=== PATIENT | male | born 1990 | race African-American/Black ===

== ENCOUNTER 2017-01-29 19:26 | Emergency (ER) | payer SELFPAY ==
--- NOTE | ~2017-01-29 | ER ---
PATIENT'S NAME: STEVEN MEJIA [facility] AGE: 26 Y [address] ROOM: [place] [address] LOCATION: ED ADMIT DATE: 01/29/2017 ER/Outpatient Report DISCHARGE DATE: 01/29/2017 FAMILY PHYSICIAN: PHYSICIAN, NO ATTENDING PHYSICIAN: Heath Kumar Time of Arrival: 1926 hours. Time of Evaluation: 1945 hours. CHIEF COMPLAINT: Cough and congestion. HISTORY OF PRESENT ILLNESS: This is a 26-year-old male, who presents to the ER, who states he has not been feeling well for the past couple of days. He states he has had a dry cough. He states he feels short of breath and that his asthma is acting up. He states he ran out of his inhaler and so he has not been using anything for that. He states he feels like he has been running a fever at home. He has had some myalgias as well. He states that he has not been around anybody else who has been sick. He states he has had a lot of nasal congestion and a little bit of a sore throat as well. ALLERGIES: AZITHROMYCIN. MEDICATIONS: Please see medication list nurse's notes. PAST MEDICAL HISTORY: Asthma. PAST SURGERIES: Right hand surgery. SOCIAL HISTORY: Smokes 1 pack a day for the last 3 or 4 years. He does smoke marijuana. REVIEW OF SYSTEMS: A 10-point review of systems was completed and was negative with the exception of those discussed in the HPI. PHYSICAL EXAMINATION: VITAL SIGNS: Height 6 feet and 6 inches stated, weight 137.4 kg taken, blood pressure is 141/65, pulse 92, respirations 18, temperature 99.2 degrees tympanically, and saturations 99% on room air. [place] Coma Score is 15. PATIENT'S NAME: STEVEN MEJIA [facility] AGE: 26 Y [address] ROOM: [place] [address] LOCATION: ED ADMIT DATE: 01/29/2017 ER/Outpatient Report DISCHARGE DATE: 01/29/2017 FAMILY PHYSICIAN: PHYSICIAN, NO ATTENDING PHYSICIAN: Heath Kumar GENERAL: Alert, 26-year-old, in no acute distress. HEENT: Head: Normocephalic. Eyes: Pupils are equal and reactive to light. Ears: TMs display good light reflexes bilaterally. Nose: Turbinates pink with purulent drainage. Throat: Erythematic. He has no exudates. He does display moist mucous membranes. NECK: Supple. No lymphadenopathy. LUNGS: Clear to auscultation bilaterally. No wheezes or crackles. Normal respiratory effort. HEART: Regular rate and rhythm. EXTREMITIES: No clubbing, cyanosis, or edema. Has full range of motion of all limbs. LABORATORY DATA AND X-RAYS: None were done. IMPRESSION: 1. Upper respiratory infection. 2. History of asthma. ASSESSMENT AND PLAN: We will place him on amoxicillin to use as directed and also we will refill his albuterol inhaler to use as directed. He may use an [id number] decongestant for his nasal congestion. He is to continue to push fluids, monitor his symptoms, and follow up with his primary care physician if he does not improve. The patient understands and agree with care. ANALY GAVIN PA-C FOR MD TYRONE GORDON/rhonda /[id number] d: 01/30/17 0319 t: 02/05/17 0932, OUTPATIENT REPORT
== END 2017-01-29 19:54 | disposition disaster alternative care site (69) ==
LOC: GMED 19:26
DX: J06.9 Acute upper respiratory infection, unspecified (principal); J45.909 Unspecified asthma, uncomplicated; F17.210 Nicotine dependence, cigarettes, uncomplicated; Z88.1 Allergy status to other antibiotic agents